=== PATIENT | male | born 1955 | race African-American/Black ===

== ENCOUNTER 2024-05-07 06:59 | Outpatient (CLI) | payer OTHER ==
[2024-05-07] MEDS ORDERED: Magnevist 469MG/ML 20 ML VIAL ONE (10:35)
== END 2024-05-07 07:00 | disposition home or self-care (01) ==
LOC: MRI 06:59
PROVIDERS: ATTEND Family Medicine Sports Medicine
DX: I65.01 Occlusion and stenosis of right vertebral artery (principal); I48.0 Paroxysmal atrial fibrillation; I10 Essential (primary) hypertension; R42 Dizziness and giddiness; R90.89 Other abnormal findings on diagnostic imaging of central nervous system
CPT/HCPCS: 70544; 70553; 76376